=== PATIENT | female | born 1970 | race Caucasian/White ===

== ENCOUNTER 2023-11-09 06:43 | Day surgery (SDC) | payer OTHER ==
[~2023-11-09 06:43] MED LIST: ADDERALL20 MG PO; B-12100 MCG PO; BACLOFEN10 MG PO; CLARITIN10 M1 PO; EFFEXOR XR150 MG PO; GABAPENTIN300 M3 PO; GEODON40 M1 PO; LISINOP/HCTZ1 TA1 PO; OMEPRAZOLE DR40 MG PO; TOPIRAMATE ER100 M1 PO; VITAMIN D-32000 UNI1 PO; WELLBUTRIN XL300 MG PO
[2023-11-09] MEDS ORDERED: FAMOTIDINE 10MG/ML 2ML SDV IV ONE (06:46)
[2023-11-09] MEDS ORDERED: LACTATED RINGER'S 1,000 ML IV ONE (06:47)
[2023-11-09] MEDS ORDERED: STERILE WATER FOR IRRIGATION 1,000 ML BTL IR ONE (07:55)
[2023-11-09 08:07] VITALS: BP 116/65
[2023-11-09] MEDS ORDERED: MIDAZOLAM HCL 2 MG/2 ML VIAL IV ONE (10:26)
[2023-11-09] MEDS ORDERED: GLYCOPYRROLATE 0.2 MG/ML IV ONE (10:26)
[2023-11-09] MEDS ORDERED: LIDOCAINE HCL 2% 2ML SDV IV ONE (10:26)
[2023-11-09] MEDS ORDERED: PROPOFOL 200 MG/20 ML VIAL IV ONE (10:26)
== END 2023-11-09 08:37 | disposition home or self-care (01) ==
LOC: ENDO 06:43 → ORM 10:45
PROVIDERS: ATTEND Internal Medicine Gastroenterology
DX: K29.71 Gastritis, unspecified, with bleeding (principal); K44.9 Diaphragmatic hernia without obstruction or gangrene; K21.9 Gastro-esophageal reflux disease without esophagitis; E34.8 Other specified endocrine disorders; Z85.048 Personal history of other malignant neoplasm of rectum, rectosigmoid junction, and anus; Z79.631 Long term (current) use of antimetabolite agent; Z91.198 Patient's noncompliance with other medical treatment and regimen for other reason; Z79.899 Other long term (current) drug therapy